=== PATIENT | female | born 1985 | race African-American/Black ===

== ENCOUNTER 2017-04-12 22:09 | Emergency (ER) | payer SELFPAY ==
[2017-04-12] MEDS ORDERED: NORMAL SALINE 1000 ML 1,000 ML IV ONE ×2 (22:24→23:17)
[2017-04-12] MEDS ORDERED: ONDANSETRON HCL INJ/PF 4 MG/2 ML SDV IV ONE (22:24)
[2017-04-12 23:02] LABS: ABSOLUTE MONOCYTES (AUTO) 1.2 10^3/uL (0.1-1.4); ABSOLUTE NEUT (AUTO) 17.4 10^3/uL (1.7-8.2); BASOPHILS % (AUTO) 0.1 % (0-2); EOSINOPHILS % (AUTO) 0.2 % (0-6); HEMATOCRIT 33.7 % (36.0-47.0); HEMOGLOBIN 10.3 g/dL (12.0-15.5); LYMPHOCYTES % (AUTO) 5.3 % (13-45); MEAN CORPUSCULAR HEMOGLOBIN 21.3 pg (27.0-33.4); MEAN CORPUSCULAR HGB CONC 30.5 g/dL (32.0-36.0); MEAN CORPUSCULAR VOLUME 70 fl (80-97); MONOCYTES % (AUTO) 5.9 % (3-13); PLATELET COUNT 543 10^3/uL (150-450); RED BLOOD COUNT 4.83 10^6/uL (3.72-5.28); RED CELL DISTRIBUTION WIDTH 17.6 % (11.5-14.0); SEGMENTED NEUTROPHILS % (AUTO) 88.5 % (42-78); TOTAL CELLS COUNTED % (AUTO) 100 %; WHITE BLOOD COUNT 19.6 10^3/uL (4.0-10.5)
--- NOTE | 2017-04-12 23:21 | ER Document Report ---
ED General - General Chief Complaint: Nausea/Vomiting Stated Complaint: VOMITING Time Seen by Provider: 04/12/17 22:23 Notes: Patient is a 31 year old female with a past medical history of insulin- dependent type 1 diabetes who presents with nausea, vomiting and diarrhea that is been ongoing for 2-3 hours prior to arrival. She states that after multiple episodes of vomiting she did have an episode of syncope. She states that this was a very brief episode and she is uncertain whether or not she truly lost consciousness. She arrives stating that she has been unable to tolerate any fluid intake since that time and feels extremely dehydrated. She notes a mild, generalized abdominal soreness which she reports started after multiple episodes of violent heaving. Nothing improves or worsens her symptoms. She has not seen her general doctor regarding today's symptoms. She states this does not feel like when she has had diabetic ketoacidosis in the past. 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 She has not had any fever, cough, sputum production, headache, neck pain, focal abdominal pain, vaginal bleeding or vaginal discharge. No dysuria. TRAVEL OUTSIDE OF THE [place] IN LAST 30 DAYS: No - Related Data Allergies/Adverse Reactions: No Known Allergies Allergy (Verified 11/27/12 11:59) Past Medical History - General Information source: Patient - Social History Smoking Status: Never Smoker Frequency of alcohol use: None Drug Abuse: None Lives with: Family Family History: Reviewed & Not Pertinent Endocrine Medical History: Reports: Hx Diabetes Mellitus Type 1 Past Surgical History: Reports: Hx Section - x 3 - Immunizations Hx Diphtheria, Pertussis, Tetanus Vaccination: Yes Review of Systems - Review of Systems Notes: Constitutional: Negative for fever. HENT: Negative for sore throat. Eyes: Negative for visual changes. Cardiovascular: Negative for chest pain. Respiratory: Negative for shortness of breath. Gastrointestinal: Positive for abdominal soreness and vomiting Genitourinary: Negative for dysuria. Musculoskeletal: Negative for back pain. Skin: Negative for rash. Neurological: Negative for headaches, weakness or numbness. 10 point ROS negative except as marked above and in HPI. Physical Exam - Vital signs Vitals: Temp Pulse Resp BP Pulse Ox 98.2 F 110 H 18 87/58 L 100 04/12/17 22:14 04/12/17 22:14 04/12/17 22:14 04/12/17 22:14 04/12/17 22:14 Interpretation: Hypotensive, Tachycardic Notes: PHYSICAL EXAMINATION: GENERAL: Appears mildly unwell but in no acute distress HEAD: Atraumatic, normocephalic. EYES: Pupils equal round and reactive to light, extraocular movements intact, sclera anicteric, conjunctiva are normal. ENT: nares patent, oropharynx clear without exudates. Dry mucous membranes. NECK: Normal range of motion, supple without lymphadenopathy LUNGS: Breath sounds clear to auscultation bilaterally and equal. No wheezes rales or rhonchi. HEART: Regular tachycardia without murmurs ABDOMEN: Soft, nontender, normoactive bowel sounds. No guarding, no rebound. No masses appreciated. EXTREMITIES: Normal range of motion, no pitting or edema. No cyanosis. NEUROLOGICAL: No focal neurological deficits. Moves all extremities spontaneously and on command. PSYCH: Normal mood, normal affect. SKIN: Warm, Dry, normal turgor, no rashes or lesions noted. Course - Re-evaluation Re-evalutation: 04/12/17 23:19 Patient presents with acute onset of vomiting and diarrhea followed by syncopal episode. At time of assessment patient's overall nontoxic. Vitals show mild tachycardia heart rate 108 and a mildly soft blood pressure 92 and 76. Patient states that her symptoms do not feel like when she has had diabetic ketoacidosis in the past. She does note some general abdominal soreness but states that this started after multiple bouts of vomiting and she feels that this is related to muscle soreness from some any episodes of vomiting. On abdominal exam she has no focal abdominal tenderness, rebound or guarding. Clinical history is not consistent with acute pancreatitis, biliary pathology, acute appendicitis, bowel obstruction or mesenteric ischemia. She has ready tolerate oral intake here in the emergency department. Her labs are notable for leukocytosis which is nonspecific and may very well be related to her persistent vomiting. Awaiting the remainder of her labs to further exclude any evidence of diabetic ketoacidosis. Will reassess after IV fluids. 04/12/17 23:47 Labs are not consistent with acute diabetic ketoacidosis. Patient is continued to receive IV fluids. She has been up and ambulate and around without difficulty. Will continue to monitor 04/13/17 00:53 Patient's heart rate has normalized as has her blood pressure. Current heart rate is 97, blood pressure 120-176. Urinalysis does show findings consistent with likely pyelonephritis which may be the trigger for patient's vomiting. She has been given a dose of cephalexin. She will be started on a 7 day course of additional cephalexin. She is in no distress. She has tolerated oral intake for over 1 hour at this time without further episodes of vomiting. Repeat abdominal assessment remains without any focal abdominal tenderness, rebound or guarding. She states she feels much improved. I have instructed her to immediately reconnect her insulin pump at time of discharge. At this point given her complete resolution of symptoms, improvement of her vital signs , and overall unremarkable labs with the exception of chronic anemia and a leukocytosis likely secondary to pyelonephritis, I believe discharge with outpatient follow-up is appropriate. At this time will discharge with return precautions and follow-up recommendations. Verbal discharge instructions given a the bedside and opportunity for questions given. Medication warnings reviewed. Patient is in agreement with this plan and has verbalized understanding of return precautions and the need for primary care follow-up in the next 24-72 hours. - Vital Signs Vital signs: Temp Pulse Resp BP Pulse Ox 98.8 F 110 H 18 87/58 L 100 04/13/17 01:03 04/12/17 22:14 04/12/17 22:14 04/12/17 22:14 04/12/17 22:14 - Laboratory Result Diagrams: 04/12/17 22:47 04/12/17 22:47 Laboratory results interpreted by me: 04/12/17 04/12/17 04/12/17 22:47 22:47 23:30 WBC 19.6 H Hgb 10.3 L Hct 33.7 L MCV 70 L MCH 21.3 L MCHC 30.5 L RDW 17.6 H Plt Count 543 H Seg Neutrophils % 88.5 H Lymphocytes % 5.3 L Absolute Neutrophils 17.4 H Glucose 217 H Calcium 10.5 H Total Protein 8.5 H Urine Protein 100 H Urine Glucose (UA) >=500 H Ur Leukocyte Esterase LARGE H Discharge - Discharge Clinical Impression: Vomiting and diarrhea, Dehydration, Pyelonephritis Condition: Good Disposition: HOME, SELF-CARE Additional Instructions: Your labs do show findings consistent with a urinary tract infection. You are being started on antibiotics to treat this. You were also sent home with Nick to treat her nausea as needed. Please continue to monitor blood sugars closely at home and return if they are consistently above 200. Please also return if you develop persistent vomiting, pass out, worsening abdominal pain, or have any other symptoms that are worrisome to you. Prescriptions: Cephalexin Monohydrate [Keflex 500 mg Capsule] 500 mg PO Q6H 7 Days capsule Forms: Return to Work
[2017-04-12 23:26] LABS: ALANINE AMINOTRANSFERASE 20 U/L (9-52); ALBUMIN 4.9 g/dL (3.5-5.0); ALKALINE PHOSPHATASE 95 U/L (38-126); ANION GAP 19 (5-19); ASPARTATE AMINO TRANSFERASE 21 U/L (14-36); BILIRUBIN,DIRECT 0.1 mg/dL (0.0-0.4); BILIRUBIN,TOTAL 0.3 mg/dL (0.2-1.3); BLOOD UREA NITROGEN 14 mg/dL (7-20); CALCIUM 10.5 mg/dL (8.4-10.2); CARBON DIOXIDE 22 mmol/L (22-30); CHLORIDE 102 mmol/L (98-107); GLUCOSE 217 mg/dL (75-110); LIPASE 38.3 U/L (23-300); POTASSIUM 3.6 mmol/L (3.6-5.0); SODIUM 142.5 mmol/L (137-145); TOTAL PROTEIN 8.5 g/dL (6.3-8.2)
[2017-04-12 23:42] LABS: VENOUS BLOOD BASE EXCESS -1.3 mmol/L; VENOUS BLOOD HCO3 24.5 mmol/L (20-32); VENOUS BLOOD PH 7.35 (7.30-7.42)
[2017-04-13 00:12] LABS: APPEARANCE,URINE CLOUDY; BILIRUBIN,URINE NEGATIVE (NEGATIVE); COLOR,URINE YELLOW; GLUCOSE, URINE >=500 mg/dL (NEGATIVE); KETONES,URINE NEGATIVE (NEGATIVE); LEUKOCYTE ESTERASE,URINE LARGE (NEGATIVE); NITRITE,URINE NEGATIVE (NEGATIVE); PROTEIN,URINE 100 mg/dL (NEGATIVE); URINE SPECIFIC GRAVITY 1.024; UROBILINOGEN,URINE NEGATIVE mg/dL (<2.0)
[2017-04-13] MEDS ORDERED: ONDANSETRON ODT 4 MG TAB (6 TAB/ER DISP) PO PRN (00:53)
[2017-04-13] MEDS ORDERED: CEPHALEXIN 500 MG CAPSULE PO ONE (02:07)
[2017-04-13 02:23] VITALS: BP 114/74
== END 2017-04-13 02:23 | disposition home or self-care (01) ==
LOC: ER 22:09
DX: N12 Tubulo-interstitial nephritis, not specified as acute or chronic (principal); E86.0 Dehydration; R11.2 Nausea with vomiting, unspecified; R19.7 Diarrhea, unspecified; E10.9 Type 1 diabetes mellitus without complications; Z79.4 Long term (current) use of insulin
CPT/HCPCS: 99284; 96361; 96374; 36415; 87086; 83690; 84703; 85025; 87088; 80053; 81001; 82803; J2405; J7030

== ENCOUNTER 2017-09-29 16:34 | Emergency (ER) | payer OTHER ==
[2017-09-29 16:39] VITALS: BP 125/77
--- NOTE | 2017-09-29 17:48 | ER Document Report ---
HPI - HPI Pain Level: 4 Notes: Patient is a 32-year-old female no significant past medical history presents to the ED complaining of left medial knee pain 1 week, but worsening over the last few days. 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 Patient states that she has a burning sensation to the medial part of her knee is worse when she touches it. She has not noticed any obvious swelling or redness. She is still able to walk, but does limp on occasion. Pain does not radiate. Denies any drug allergies. The knee does not give out on her and does not lock up. No other concerns or complaints at this time. No trauma or known injury. Denies any headache, fever , URI, sore throat, chest pain, palpitations, syncope, cough, shortness of breath, wheeze, dyspnea, abdominal pain, nausea/vomiting/diarrhea, urinary retention, dysuria, hematuria, loss of control of bowel or bladder, numbness/ tingling, muscle paralysis/weakness, or rash. Pt requesting work note. - ROS Systems Reviewed and Negative: Yes All other systems reviewed and negative - CONSTITUTIONAL Constitutional: DENIES: Fever, Chills - EENT EENT: DENIES: Sore Throat, Ear Pain, Eye problems - NEURO Neurology: DENIES: Headache, Weakness, Vision blurred, Dizzinesss / Vertigo - CARDIOVASCULAR Cardiovascular: DENIES: Chest pain - RESPIRATORY Respiratory: DENIES: Trouble Breathing, Coughing - GASTROINTESTINAL Gastrointestinal: DENIES: Abdominal Pain, Black / Bloody Stools - URINARY Urinary: DENIES: Dysuria, Urgency, Frequency - REPRODUCTIVE Reproductive: DENIES: : - MUSCULOSKELETAL Musculoskeletal: REPORTS: Extremity pain - left knee Past Medical History - Social History Smoking Status: Unknown if Ever Smoked Chew tobacco use (# tins/day): No Frequency of alcohol use: None Drug Abuse: None Family History: Reviewed & Not Pertinent Patient has suicidal ideation: No Patient has homicidal ideation: No Endocrine Medical History: Reports: Hx Diabetes Mellitus Type 1 Renal/ Medical History: Denies: Hx Peritoneal Dialysis Past Surgical History: Reports: Hx Section - x 3 - Immunizations Hx Diphtheria, Pertussis, Tetanus Vaccination: Yes Vertical Provider Document - CONSTITUTIONAL Agree With Documented VS: Yes Notes: PHYSICAL EXAMINATION: GENERAL: Well-appearing, well-nourished and in no acute distress. LUNGS: Breath sounds clear to auscultation bilaterally and equal. No wheezes rales or rhonchi. HEART: Regular rate and rhythm without murmurs, rubs, gallops. Musculoskeletal: Lt knee: No obvious swelling, ecchymosis, effusion, or deformity. FROM to passive/active and flexion >90 w/o difficulty or tenderness. Strength 5+/5. N/V intact distal. + mild tenderness to the medial joint line. Ligamentous grossly stable, limited exam with larger leg size. Bill grossly negative. Patellar grind negative. No calf tenderness. Extremities: No cyanosis, clubbing, or edema b/l. Peripheral pulses 2+. Capillary refill less than 3 seconds. [place] neg b/l. NEUROLOGICAL: Normal speech, normal gait. Normal sensory, motor exams PSYCH: Normal mood, normal affect. SKIN: Warm, Dry, normal turgor, no rashes or lesions noted. - INFECTION CONTROL TRAVEL OUTSIDE OF THE [place] IN LAST 30 DAYS: No Course - Re-evaluation Re-evalutation: 09/29/17 17:45 Patient is an afebrile, well-hydrated, 32-year-old female who presents to the ED with left knee pain, suspect inflammatory. Vitals are acceptable without any significant tachycardia, tachypnea, or hypoxia. PE is otherwise unremarkable for any neurovascular compromise, obvious tendon/ligament rupture, obvious fracture/dislocation, septic joint. [place] knee rules negative. Pt declined knee immobilizer & crutches. Patient is nontoxic-appearing. Patient is able to ambulate and weight-bear although she is limping. No other labs or imaging warranted at this time based on H&P. Rx for naproxen. Conservative measures otherwise for symptoms. Recheck with your PCM in 3-5 days. Consider consult orthopedics. Return to the ED with any worsening/concerning symptoms otherwise as reviewed in discharge. Patient is in agreement. Work note provided. - Vital Signs Vital signs: Temp Pulse Resp BP Pulse Ox 99.2 F 104 H 24 H 125/77 100 09/29/17 16:38 09/29/17 16:38 09/29/17 16:38 09/29/17 16:38 09/29/17 16:38 Discharge - Discharge Clinical Impression: Left knee pain Qualifiers: Chronicity: acute Qualified Code(s): M25.562 - Pain in left knee Condition: Stable Disposition: HOME, SELF-CARE Instructions: Ice & Elevation ([facility]) Additional Instructions: Rest, Ice, Compression, Elevation Tylenol/ibuprofen as needed Light stretches daily Strength exercises as able Moist heat and massage may help F/u with your PCP in 3-5 days for a recheck Consider consult(s) with Orthopedics/physical therapy for ongoing/worsening symptoms Return to the ED with any worsening symptoms and/or development of fever, headache, chest pain, palpitations, syncope, shortness of breath, trouble breathing, abdominal pain, n/v/d, muscle weakness/paralysis, numbness/tingling, swelling, redness, or other worsening symptoms that are concerning to you. Prescriptions: Naproxen 500 mg PO BID PRN #30 tablet PRN Reason: Forms: Return to Work Referrals: [facility] [Provider Group] - Follow up as needed
== END 2017-09-29 18:26 | disposition home or self-care (01) ==
LOC: ER 16:34
DX: M25.562 Pain in left knee (principal); E10.9 Type 1 diabetes mellitus without complications
CPT/HCPCS: 99283

== ENCOUNTER 2017-11-02 17:02 | Emergency (ER) | payer OTHER ==
--- NOTE | 2017-11-02 18:09 | ER Document Report ---
ED Medical Screen (RME) - General Chief Complaint: Urinary Problem Stated Complaint: PELVIC PAIN Time Seen by Provider: 11/02/17 18:07 Mode of Arrival: Ambulatory Information source: Patient Notes: 32-year-old female diabetes presents with complaint of pelvic pain, dysuria for 1 week. She denies vaginal discharge. Last menstrual period was October 08, 2017. She is currently sexually active. She has not had a pelvic exam in over 1 year. I have greeted and performed a rapid initial assessment of this patient. A comprehensive ED assessment and evaluation of the patient, analysis of test results and completion of medical decision making process we will be contacted by additional ED providers. PHYSICAL EXAMINATION: GENERAL: Well-appearing, well-nourished and in no acute distress. HEAD: Atraumatic, normocephalic. EYES: Pupils equal round extraocular movements intact, conjunctiva are normal. ENT: Nares patent NECK: Normal range of motion LUNGS: No respiratory distress Musculoskeletal: Normal range of motion NEUROLOGICAL: Normal speech, normal gait. PSYCH: Normal mood, normal affect. SKIN: Warm, Dry, normal turgor, no rashes or lesions noted. TRAVEL OUTSIDE OF THE [place] IN LAST 30 DAYS: No - HPI Onset: Last week Onset/Duration: Gradual, Intermittent, Worse Quality of pain: Fullness, Pressure Severity: Mild Associated Symptoms: None Exacerbated by: Denies Relieved by: Denies Similar symptoms previously: No Recently seen / treated by doctor: No - Related Data Smoking: Non-smoker Frequency of alcohol use: None Drug Abuse: None Allergies/Adverse Reactions: No Known Allergies Allergy (Verified 09/29/17 16:36) Past Medical History - Social History Family history: Reviewed & Not Pertinent Endocrine Medical History: Reports: Hx Diabetes Mellitus Type 1 Renal/ Medical History: Denies: Hx Peritoneal Dialysis Past Surgical History: Reports: Hx Section - x 3 - Immunizations Hx Diphtheria, Pertussis, Tetanus Vaccination: Yes Physical Exam - Vital signs Vitals: Temp Pulse Resp BP Pulse Ox 98.2 F 100 12 143/84 H 100 11/02/17 17:08 11/02/17 17:08 11/02/17 17:08 11/02/17 17:08 11/02/17 17:08 Course - Vital Signs Vital signs: Temp Pulse Resp BP Pulse Ox 98.2 F 100 12 143/84 H 100 11/02/17 17:08 11/02/17 17:08 11/02/17 17:08 11/02/17 17:08 11/02/17 17:08 Doctor's Discharge - Discharge Referrals: ISHA LUNDBERG MD [Primary Care Provider] - Follow up as needed
[2017-11-02 19:00] LABS: APPEARANCE,URINE CLOUDY; BILIRUBIN,URINE NEGATIVE (NEGATIVE); GLUCOSE, URINE >=500 mg/dL (NEGATIVE); KETONES,URINE NEGATIVE (NEGATIVE); LEUKOCYTE ESTERASE,URINE LARGE (NEGATIVE); NITRITE,URINE NEGATIVE (NEGATIVE); PROTEIN,URINE NEGATIVE (NEGATIVE); URINE SPECIFIC GRAVITY 1.033; UROBILINOGEN,URINE NEGATIVE mg/dL (<2.0)
[2017-11-02 19:01] LABS: COLOR,URINE LIGHT YELLOW
--- NOTE | 2017-11-02 19:35 | ER Document Report ---
HPI - HPI Pain Level: 2 Notes: Patient is a 32-year-old female with a significant past medical history who presents to the ED complaining of urinary burning, urgency, and frequency over the last week. Patient states that she also has suprapubic pressure, but no sharp pains. She denies any drug allergies. No other concerns or complaints. Denies any headache, fever, URI, sore throat, chest pain, palpitations, syncope , cough, shortness of breath, wheeze, dyspnea, abdominal pain, nausea/vomiting/ diarrhea, urinary retention, back pain, loss of control of bowel or bladder, numbness/tingling, saddle anesthesia, muscle paralysis/weakness, or rash. No vaginal discharge, odor, or bleeding. - ROS Systems Reviewed and Negative: Yes All other systems reviewed and negative - REPRODUCTIVE Reproductive: DENIES: : Past Medical History - General Information source: Patient - Social History Smoking Status: Never Smoker Frequency of alcohol use: None Drug Abuse: None Family History: Reviewed & Not Pertinent Patient has suicidal ideation: No Patient has homicidal ideation: No Endocrine Medical History: Reports: Hx Diabetes Mellitus Type 1 Renal/ Medical History: Denies: Hx Peritoneal Dialysis Past Surgical History: Reports: Hx Section - x 3 - Immunizations Hx Diphtheria, Pertussis, Tetanus Vaccination: Yes Vertical Provider Document - CONSTITUTIONAL Agree With Documented VS: Yes Notes: PHYSICAL EXAMINATION: GENERAL: Well-appearing, well-nourished and in no acute distress. LUNGS: Breath sounds clear to auscultation bilaterally and equal. No wheezes rales or rhonchi. HEART: Regular rate and rhythm without murmurs, rubs, gallops. ABDOMEN: Soft, nontender, nondistended abdomen. No guarding, no rebound. No masses appreciated. Normal bowel sounds present. No CVA tenderness bilaterally. : deferred Musculoskeletal: FROM to passive/active. Strength 5+/5. Extremities: No cyanosis, clubbing, or edema b/l. Peripheral pulses 2+. Capillary refill less than 3 seconds. NEUROLOGICAL: Normal speech, normal gait. PSYCH: Normal mood, normal affect. SKIN: Warm, Dry, normal turgor, no rashes or lesions noted. - INFECTION CONTROL TRAVEL OUTSIDE OF THE [place] IN LAST 30 DAYS: No Course - Re-evaluation Re-evalutation: 11/02/17 19:33 Patient is an afebrile, well-hydrated, 32-year-old female who presents to the ED with an acute UTI. Vitals are acceptable without any significant tachycardia , tachypnea, or hypoxia. PE is otherwise unremarkable. Patient's abdomen is soft and nontender throughout. See urinalysis results. Urine culture is pending. HCG negative. No further labs or imaging warranted at this time based on H&P. Patient is tolerating p.o. without difficulties and is nontoxic- appearing. Low suspicion/risk for acute appendicitis, bowel obstruction, acute cholecystitis, acute cholangitis, perforated diverticulitis, incarcerated hernia , pancreatitis, perforated ulcer, peritonitis, sepsis, pelvic inflammatory disease, ectopic , tubo-ovarian abscess, ovarian torsion, or other systemic emergent condition at this time. Patient is aware that her condition can change from initial presentation and she needs to monitor symptoms closely and seek medical attention if any acute changes. Conservative measures otherwise for symptoms. Recheck with your PCM in 3-5 days. Return to the ED with any worsening/concerning symptoms otherwise as reviewed in discharge. Patient is in agreement. - Vital Signs Vital signs: Temp Pulse Resp BP Pulse Ox 98.2 F 100 12 143/84 H 100 11/02/17 17:08 11/02/17 17:08 11/02/17 17:08 11/02/17 17:08 11/02/17 17:08 - Laboratory Laboratory results interpreted by me: 11/02/17 18:15 Urine Glucose (UA) >=500 H Ur Leukocyte Esterase LARGE H Urine Ascorbic Acid 20 H Discharge - Discharge Clinical Impression: Acute UTI (urinary tract infection) Condition: Stable Disposition: HOME, SELF-CARE Instructions: Cephalexin ([facility]), Urinary Tract Infection ([facility]) Additional Instructions: Push fluids (i.e. water, cranberry juice) Proper hygenic technique Keep the skin clean Tylenol/ibuprofen as needed May use over the counter AZO for burning with urination x2-3 days Take medications as directed F/u with your PCM in 3-5 days for a recheck Consider consult with a Urologist for ongoing/worsening symptoms. Return to the ED with any worsening symptoms and/or development of fever, headache, chest pain, palpitations, syncope, shortness of breath, trouble breathing, abdominal pain, n/v/d, blood in stool/urine, loss of control of bowel /bladder, urinary retention, or other worsening symptoms that are concerning to you. Prescriptions: Cephalexin Monohydrate [Keflex 500 mg Capsule] 500 mg PO TID #21 capsule Referrals: ISHA LUNDBERG MD [ACTIVE STAFF] - Follow up as needed
[2017-11-02 19:42] VITALS: BP 122/78
== END 2017-11-02 19:43 | disposition home or self-care (01) ==
LOC: ER 17:02
DX: N39.0 Urinary tract infection, site not specified (principal); E10.9 Type 1 diabetes mellitus without complications
CPT/HCPCS: 81001; 81025; 87086; 87088; 99284

== ENCOUNTER 2018-02-04 21:07 | Emergency (ER) | payer OTHER ==
--- NOTE | 2018-02-04 23:59 | RADIOLOGY REPORT (SQ) ---
EXAM DESCRIPTION: XR CHEST 1 VIEW COMPLETED DATE/TME: 02/04/2018 23:24 CLINICAL HISTORY: 32 years, Female, chest pain COMPARISON: None. NUMBER OF VIEWS: 1 TECHNIQUE: Portable chest LIMITATIONS: None. FINDINGS: Heart size is normal. Lungs are clear. No pneumothorax IMPRESSION: Negative chest copyright 2011 [employer]- All Rights Reserved
[2018-02-05] MEDS ORDERED: KETOROLAC TROMETHAMINE 60 MG/2 ML SDV IM ONE (00:14)
--- NOTE | 2018-02-05 00:20 | ER Document Report ---
ED General - General Chief Complaint: Chest Pain Stated Complaint: CHEST PAIN Time Seen by Provider: 02/04/18 23:24 TRAVEL OUTSIDE OF THE [place] IN LAST 30 DAYS: No - HPI Onset: This morning Onset/Duration: Gradual, Waxing and waning Quality of pain: Sharp Severity: Moderate Associated symptoms: None Exacerbated by: Movement Relieved by: Denies Similar symptoms previously: No Notes: Patient is a 32-year-old female that presents to the emergency department for chief complaint of chest pain. Patient reports a sharp chest pain that started this morning. It is worse when she moves and relieved some when she is holding still. She states the pain is located just to the right of her sternum. She denies injury or trauma. She denies any heavy lifting. She has not had any recent surgery, travel, or im mobilization. She denies any leg edema or cramping. She denies being on any estrogen medications. She is a diabetic and states her blood glucose runs between 102 100. She denies family history of cardiac disease. She has not taken any medication for her symptoms. Past Medical History: Diabetes Past Surgical History: x3 Social History: Denies drugs alcohol and tobacco Family History: Reviewed and noncontributory for presenting illness Allergies: Reviewed, see documented allergy list. REVIEW OF SYSTEMS: CONSTITUTIONAL : No fever No chills No diaphoresis No recent illness EENT: No vision changes No congestion No sore throat CARDIOVASCULAR: chest pain No palpitations RESPIRATORY: No shortness of breath No cough No difficulty breathing GASTROINTESTINAL: No abdominal pain No nausea No vomiting No diarrhea GENITOURINARY: No dysuria No hematuria No difficulty urinating MUSCULOSKELETAL: No back pain No leg pain No arm pain SKIN: No rashes No lesions LYMPHATIC: No swollen, enlarged glands. NEUROLOGICAL: No lightheadedness No headache No weakness No paresthesias PSYCHIATRIC: No anxiety No depression PHYSICAL EXAMINATION: Vital signs reviewed, nursing noted reviewed. GENERAL: Well-appearing, well-nourished and in no acute distress. HEAD: Atraumatic, normocephalic. EYES: Eyes appear normal, extraocular movements intact, sclera anicteric, conjunctiva are normal. ENT: nares patent, oropharynx clear without exudates. Moist mucous membranes. NECK: Normal range of motion, supple without lymphadenopathy LUNGS: Pinpoint tenderness on right parasternal border between ribs 3/4 and 4/5. No crepitus or deformity. Breath sounds clear to auscultation bilaterally and equal. No wheezes rales or rhonchi. HEART: Regular rate and rhythm without murmurs ABDOMEN: Soft, nontender, normoactive bowel sounds. No rebound, guarding, or rigidity. No masses appreciated. EXTREMITIES: Nontender, good range of motion, no pitting or edema. NEUROLOGICAL: No focal neurological deficits. Moves all extremities spontaneously Motor and sensory grossly intact on exam. PSYCH: Normal mood, normal affect. SKIN: Warm, Dry, normal turgor, no rashes or lesions noted on exposed skin - Related Data Allergies/Adverse Reactions: No Known Allergies Allergy (Verified 09/29/17 16:36) Past Medical History - Social History Smoking Status: Former Smoker Chew tobacco use (# tins/day): No Drug Abuse: None Family History: Reviewed & Not Pertinent Patient has suicidal ideation: No Patient has homicidal ideation: No Endocrine Medical History: Reports: Hx Diabetes Mellitus Type 1 Renal/ Medical History: Denies: Hx Peritoneal Dialysis Past Surgical History: Reports: Hx Section - x 3 - Immunizations Hx Diphtheria, Pertussis, Tetanus Vaccination: Yes Physical Exam - Vital signs Vitals: Temp Pulse Resp BP 99.2 F 97 16 124/79 02/04/18 22:24 02/04/18 22:24 02/04/18 22:24 02/04/18 22:24 Course - Re-evaluation Re-evalutation: 02/05/18 00:20 Vitals reviewed. Nursing notes reviewed. Patient's x-ray shows no acute rib fracture or other acute process. Her EKG is normal. She has pinpoint tenderness on her anterior chest wall and symptoms are likely musculoskeletal. She will be given Toradol for symptomatic management in the emergency room. She was encouraged to use anti-inflammatories at home. She will follow closely with her primary care doctor for reevaluation in the next few days. She will return to the emergency room for any new or worsening symptoms. She is PERC criteria negative and I do not suspect pulmonary embolism. She only has diabetes as a risk factor for ACS and her symptoms are not consistent, ACS is not suspected. Chest X-Ray 02/04/18 23:24 IMPRESSION: Negative chest copyright 2011 [employer]- All Rights Reserved - Vital Signs Vital signs: Temp Pulse Resp BP Pulse Ox 99.2 F 97 16 124/79 02/04/18 22:24 02/04/18 22:24 02/04/18 22:24 02/04/18 22:24 Discharge - Discharge Clinical Impression: Chest wall pain Condition: Stable Disposition: HOME, SELF-CARE Instructions: Chest Wall Pain ([facility]), Anti-Inflammatory Medication ([facility]) Additional Instructions: Please return to the emergency department if you have any worsening, or concern of your symptoms. Please return to the emergency department if you develop chest pain, difficulty breathing, severe abdominal pain, or ongoing vomiting. Please follow-up with your primary care physician in 2-3 days or the [facility] If prescribed, take all medications as directed. If you have any questions or concerns do not hesitate to return the emergency department for evaluation. Referrals: [facility] [Provider Group] - Follow up as needed
[2018-02-05 00:26] VITALS: BP 128/79
--- NOTE | 2018-02-05 08:49 | EKG REPORT ---
SEVERITY:- ABNORMAL ECG - SINUS RHYTHM PROBABLE LEFT ATRIAL ABNORMALITY ABNORMAL Q SUGGESTS ANTERIOR INFARCT : Confirmed by: Adriano Trejo 05-Feb-2018 08:48:30
== END 2018-02-05 00:25 | disposition home or self-care (01) ==
LOC: ER 21:07
DX: R07.89 Other chest pain (principal); Z87.891 Personal history of nicotine dependence; E10.9 Type 1 diabetes mellitus without complications
CPT/HCPCS: 93005; 99285; 96372; 71045; 93010; J1885

== ENCOUNTER 2018-05-24 07:20 | Emergency (ER) | payer OTHER ==
[2018-05-24 07:25] VITALS: BP 119/77
--- NOTE | 2018-05-24 08:32 | ER Document Report ---
Addendum entered and electronically signed by JAYSHREE GUSMAN FNP-C 05/24/18 12:46: Course - Re-evaluation Re-evalutation: 05/24/18 11:20 . Presentation of asymptomatic hyperglycemia. There is no evidence of HHS or diabetic ketoacidosis on laboratories or based on clinical history. Patient's vitals are within normal limits. They deny any acute focal complaints. Treatment with insulin and IV fluids given here in the emergency department with appropriate response of the blood sugar. Patient does have primary care follow- up. Patient was instructed to continue taking their metformin and advised they will likely need to increase dietary modification and may also need medication changes. BS 276, will give 10 units of insulin and 1 liter of IV fluids given. recheck BS 1 hour later, BS 266. was 296 when she arrived. Pt does have an insulin pump, states she does regulate her BS with her insulin pump. checks her BS several times a day. Last Alc was less than 10. Denies to follow-up with primary care provider tomorrow. Follow a low-carb diet. Monitor blood sugars at day, cover with insulin. Patient states that she would like to leave and will be able to monitor her blood sugars at homeIndications to return to emergency department as well as the importance of close outpatient follow-up were discussed at length. Patient verbalized understanding of the need for close follow-up and indications to return to the ED. - Vital Signs Vital signs: Temp Pulse Resp BP Pulse Ox 98.2 F 95 14 119/77 100 05/24/18 07:23 05/24/18 07:23 05/24/18 07:23 05/24/18 07:23 05/24/18 07:23 - Laboratory Result Diagrams: 05/24/18 09:21 05/24/18 09:21 Laboratory results interpreted by me: 05/24/18 05/24/18 05/24/18 09:21 09:21 09:21 Hgb 8.7 L Hct 28.4 L MCV 65 L MCH 19.8 L MCHC 30.6 L RDW 17.0 H Plt Count 676 H Sodium 135.7 L Creatinine 0.43 L Glucose 296 H POC Glucose Urine Protein 30 H Urine Glucose (UA) >=500 H Ur Leukocyte Esterase LARGE H Urine Ascorbic Acid 40 H 05/24/18 11:10 Hgb Hct MCV MCH MCHC RDW Plt Count Sodium Creatinine Glucose POC Glucose 274 H Urine Protein Urine Glucose (UA) Ur Leukocyte Esterase Urine Ascorbic Acid Original Note: ED General - General Chief Complaint: Pelvic Pain Stated Complaint: PELVIC PAIN Time Seen by Provider: 05/24/18 08:25 Primary Care Provider: RENY LOBO MD [ACTIVE STAFF] - Follow up as needed ILIR JETER MD [ACTIVE STAFF] - Follow up as needed Mode of Arrival: Ambulatory Information source: Patient, Parent TRAVEL OUTSIDE OF THE [place] IN LAST 30 DAYS: No - HPI Notes: 32-year-old female with a history of type 1 diabetes who is on insulin pump presents to the ED for complaints of having dysuria, urgency frequency suprapubic pain for the last 2 weeks has become progressively worse, she is concerned that she may have a kidney infection. Tried AZO 2 weeks ago, states she was taking that for a week and then when she stopped taking it noticed she was having lower abdominal cramping. Patient states she did have her menstrual cycle last week was unsure if this is related to her menstrual cycle or because of for UTI. Patient states she has had UTIs in the past but is never had a problem nephritis. Thought her AZO had a antibacterial property to it so this is why she consistently took AZO. Denies any vaginal bleeding, pelvic pain, vaginal pain or vaginal discharge. Denies fevers, chills, chest pain,palpitations, shortness of breath, dyspnea, nausea, vomiting, diarrhea, abdominal pain besides suprapubic area, hematuria,speech changes, LH, dizziness, syncope, headaches, weakness, bowel or bladder dysfunction, saddle anesthesia, numbness or tingling in bilateral upper or lower extremities equally, muscle paralysis, weakness in bilateral upper or lower extremities equally or rash. States that she did check her sugar this morning it was around 200 - Related Data Allergies/Adverse Reactions: No Known Allergies Allergy (Verified 05/24/18 07:21) Past Medical History - General Information source: Patient - Social History Smoking Status: Never Smoker Frequency of alcohol use: None Drug Abuse: None Family History: Reviewed & Not Pertinent Patient has suicidal ideation: No Patient has homicidal ideation: No Endocrine Medical History: Reports: Hx Diabetes Mellitus Type 1 Renal/ Medical History: Denies: Hx Peritoneal Dialysis Past Surgical History: Reports: Hx Section - x 3 - Immunizations Hx Diphtheria, Pertussis, Tetanus Vaccination: Yes Review of Systems - Review of Systems Constitutional: No symptoms reported EENT: No symptoms reported Cardiovascular: No symptoms reported Respiratory: No symptoms reported Gastrointestinal: No symptoms reported Genitourinary: See HPI Female Genitourinary: No symptoms reported Musculoskeletal: No symptoms reported Skin: No symptoms reported Hematologic/Lymphatic: No symptoms reported Neurological/Psychological: No symptoms reported Physical Exam - Vital signs Vitals: Temp Pulse Resp BP Pulse Ox 98.2 F 95 14 119/77 100 05/24/18 07:23 05/24/18 07:23 05/24/18 07:23 05/24/18 07:23 05/24/18 07:23 - Notes Notes: PHYSICAL EXAMINATION: GENERAL: Well-appearing, well-nourished and in no acute distress. HEAD: Atraumatic, normocephalic. EYES: Pupils equal round and reactive to light, extraocular movements intact, conjunctiva are normal. ENT: Nares patent, oropharynx clear without exudates. Moist mucous membranes. NECK: Normal range of motion, supple without lymphadenopathy LUNGS: Breath sounds clear to auscultation bilaterally and equal. No wheezes r ales or rhonchi. HEART: Regular rate and rhythm without murmurs ABDOMEN: Soft, nontender in all areas aside from suprapubic tenderness nondistended abdomen. No guarding, no rebound. No masses appreciated. No CVA tenderness appreciated bilaterally Female : deferred and refused Musculoskeletal: Normal range of motion, no pitting or edema. No cyanosis. NEUROLOGICAL: Cranial nerves grossly intact. Normal speech, normal gait. Normal sensory, motor exams PSYCH: Normal mood, normal affect. SKIN: Warm, Dry, normal turgor, no rashes or lesions noted. Course - Re-evaluation Re-evalutation: 05/24/18 09:26 32-year-old female afebrile vitals stable no distress for evaluation of suprapubic pain urgency frequency for the last 2 weeks. Patient unable to give a urine sample at this time, IV fluids 1 L bolus given as well as Toradol 30 mg for suprapubic pain, patient is concerned that she may have a pyelonephritis. cbc cmp urinalysis hcg After performing a Medical Screening Examination, I estimate there is LOW risk for ACUTE APPENDICITIS, BOWEL OBSTRUCTION, ACUTE CHOLECYSTITIS, PERFORATED DIVERTICULITIS, INCARCERATED HERNIA, PANCREATITIS, PELVIC INFLAMMATORY DISEASE, PERFORATED ULCER, ECTOPIC , or TUBO-OVARIAN ABSCESS, thus I consider the discharge disposition reasonable. Also, there is no evidence or peritonitis, sepsis, or toxicity. I have reevaluated this patient multiple times and no significant life threatening changes are noted. The patient and I have discussed the diagnosis and risks, and we agree with discharging home with close follow-up with the understanding that symptoms and presentations can change. We also discussed returning to the Emergency Department immediately if new or worsening symptoms occur. We have discussed the symptoms which are most concerning (e.g., bloody stool, fever, changing or worsening pain, vomiting) that necessitate immediate return. - Vital Signs Vital signs: Temp Pulse Resp BP Pulse Ox 98.2 F 95 14 119/77 100 05/24/18 07:23 05/24/18 07:23 05/24/18 07:23 05/24/18 07:23 05/24/18 07:23 - Laboratory Result Diagrams: 05/24/18 09:21 05/24/18 09:21 Laboratory results interpreted by me: 05/24/18 05/24/18 05/24/18 09:21 09:21 09:21 Hgb 8.7 L Hct 28.4 L MCV 65 L MCH 19.8 L MCHC 30.6 L RDW 17.0 H Plt Count 676 H Sodium 135.7 L Creatinine 0.43 L Glucose 296 H Urine Protein 30 H Urine Glucose (UA) >=500 H Ur Leukocyte Esterase LARGE H Urine Ascorbic Acid 40 H Discharge - Discharge Clinical Impression: UTI (urinary tract infection), Iron deficiency anemia Condition: Stable Disposition: HOME, SELF-CARE Instructions: Antibiotic Therapy ([facility]), Intravenous (IV) Fluids ([facility]), [facility]-[employer] Doctors, Toradol Injection ([facility]), Urinary Tract Infection ([facility]), Anemia, Iron Deficiency ([facility]) Additional Instructions: Urinary Tract Infection Your evaluation indicates that you have a urinary tract infection. This is due to germs growing in the bladder. This is a common problem. This infection usually responds quickly to antibiotics. Your antibiotic should be taken exactly as prescribed. Drink plenty of fluids -- three to four quarts a day. Occasionally, a bladder anesthetic will be prescribed to help stop the feeling of urgency until the antibiotic has a chance to clear the infection. This may cause your urine to be dark orange. Certain urine infections require a culture. If the doctor obtained a culture, the results will be back in two days. You should call to see if a change in treatment is needed. A repeat urinalysis after you finish treatment is often recommended. The physician will let you know if further testing is required. Call the doctor if you develop fever, chills, flank pain, inability to urinate, or blood in the urine. Prescriptions: Nitrofurantoin Macrocrystal [Macrodantin] 100 mg PO BID #20 capsule Phenazopyridine HCl [Pyridium] 200 mg PO TIDP PRN #9 tablet PRN Reason: Forms: Return to Work Referrals: ILIR JETER MD [ACTIVE STAFF] - Follow up as needed RENY LOBO MD [ACTIVE STAFF] - Follow up in 3-5 days
[2018-05-24] MEDS ORDERED: KETOROLAC TROMETHAMINE INJ/PF 30 MG/1 ML SDV IV ONE (08:58)
[2018-05-24] MEDS ORDERED: NORMAL SALINE 1000 ML 1,000 ML IV PRN (08:58)
[2018-05-24 09:48] LABS: ABSOLUTE EOSINOPHILS # (AUTO) 0.1 10^3/uL (0.0-0.6); ABSOLUTE LYMPHOCYTES (AUTO) 2.4 10^3/uL (0.5-4.7); ABSOLUTE MONOCYTES (AUTO) 0.4 10^3/uL (0.1-1.4); ABSOLUTE NEUT (AUTO) 4.2 10^3/uL (1.7-8.2); BASOPHILS % (AUTO) 0.6 % (0-2); EOSINOPHILS % (AUTO) 0.9 % (0-6); HEMATOCRIT 28.4 % (36.0-47.0); HEMOGLOBIN 8.7 g/dL (12.0-15.5); LYMPHOCYTES % (AUTO) 33.7 % (13-45); MEAN CORPUSCULAR HEMOGLOBIN 19.8 pg (27.0-33.4); MEAN CORPUSCULAR HGB CONC 30.6 g/dL (32.0-36.0); MEAN CORPUSCULAR VOLUME 65 fl (80-97); PLATELET COUNT 676 10^3/uL (150-450); RED BLOOD COUNT 4.39 10^6/uL (3.72-5.28); SEGMENTED NEUTROPHILS % (AUTO) 59.8 % (42-78); TOTAL CELLS COUNTED % (AUTO) 100 %
[2018-05-24 09:58] LABS: APPEARANCE,URINE TURBID; BILIRUBIN,URINE NEGATIVE (NEGATIVE); COLOR,URINE YELLOW; GLUCOSE, URINE >=500 mg/dL (NEGATIVE); KETONES,URINE NEGATIVE (NEGATIVE); LEUKOCYTE ESTERASE,URINE LARGE (NEGATIVE); NITRITE,URINE NEGATIVE (NEGATIVE); PROTEIN,URINE 30 mg/dL (NEGATIVE); URINE SPECIFIC GRAVITY 1.021; UROBILINOGEN,URINE NEGATIVE mg/dL (<2.0)
[2018-05-24 10:19] LABS: ALANINE AMINOTRANSFERASE 10 U/L (9-52); ALBUMIN 3.7 g/dL (3.5-5.0); ALKALINE PHOSPHATASE 95 U/L (38-126); ANION GAP 7 (5-19); ASPARTATE AMINO TRANSFERASE 15 U/L (14-36); BILIRUBIN,DIRECT 0.2 mg/dL (0.0-0.4); BILIRUBIN,TOTAL 0.3 mg/dL (0.2-1.3); BLOOD UREA NITROGEN 9 mg/dL (7-20); CALCIUM 9.4 mg/dL (8.4-10.2); CARBON DIOXIDE 26 mmol/L (22-30); CHLORIDE 103 mmol/L (98-107); GLUCOSE 296 mg/dL (75-110); POTASSIUM 4.4 mmol/L (3.6-5.0); SODIUM 135.7 mmol/L (137-145); TOTAL PROTEIN 7.5 g/dL (6.3-8.2)
[2018-05-24 10:29] LABS: HYPOCHROMASIA 2+; POLYCHROMASIA 1+
[2018-05-24 10:30] LABS: ANISOCYTOSIS 2+; OVALOCYTES 1+; PLATELET COMMENT INCREASED; POIKILOCYTOSIS SLIGHT; TEAR DROP CELLS SLIGHT
[2018-05-24] MEDS ORDERED: INSULIN REG, HUMAN 100 UNIT/ML 3 ML VIAL (PYX) IV ONE (11:19)
[2018-05-24] MEDS ORDERED: NORMAL SALINE 1000 ML 1,000 ML IV ONE (11:21)
[2018-05-24] MEDS ORDERED: INSULIN REG, HUMAN 100 UNIT/ML 3 ML VIAL (PYX) SUBCUT ONE (11:23)
== END 2018-05-24 13:33 | disposition home or self-care (01) ==
LOC: ER 07:20
DX: N39.0 Urinary tract infection, site not specified (principal); D50.9 Iron deficiency anemia, unspecified; R10.2 Pelvic and perineal pain; E10.9 Type 1 diabetes mellitus without complications; Z79.4 Long term (current) use of insulin; Z96.41 Presence of insulin pump (external) (internal)
CPT/HCPCS: 99284; 96361; 96374; 36415; 82962; 85025; 81025; 80053; 81001; J1885; J1815; J7030

== ENCOUNTER 2018-10-06 14:19 | Emergency (ER) | payer OTHER ==
[2018-10-06 14:27] VITALS: BP 123/75
[2018-10-06] MEDS ORDERED: IBUPROFEN 800 MG TABLET PO ONE (14:44)
[2018-10-06] MEDS ORDERED: CEPHALEXIN 500 MG CAPSULE PO ONE (14:44)
--- NOTE | 2018-10-06 14:46 | ER Document Report ---
HPI - HPI Patient complains to provider of: skin infection Time Seen by Provider: 10/06/18 14:34 Onset: Other - 3 days Onset/Duration: Worse Quality of pain: Achy Pain Level: 4 Associated Symptoms: denies: Chest pain, Fever Exacerbated by: Movement Relieved by: Denies Similar symptoms previously: No Recently seen / treated by doctor: No Notes: Patient states that she had been using an insulin pump to the left upper arm. Patient states area became tender and swollen. Patient states that she has since stopped using the pump but has noticed that the area of swelling has become red and more painful today. Patient denies any fever. Patient reports looking at the equipment and denies any concerns about retained foreign body in the wound. - ROS ROS below otherwise negative: Yes Systems Reviewed and Negative: Yes All other systems reviewed and negative - CONSTITUTIONAL Constitutional: DENIES: Fever, Chills - REPRODUCTIVE Reproductive: DENIES: : - MUSCULOSKELETAL Musculoskeletal: REPORTS: Extremity pain, Swelling - DERM Skin Color: Erythema Past Medical History - General Information source: Patient - Social History Smoking Status: Never Smoker Frequency of alcohol use: None Drug Abuse: None Occupation: school childcare attendant Family History: Reviewed & Not Pertinent Endocrine Medical History: Reports: Hx Diabetes Mellitus Type 1 Renal/ Medical History: Denies: Hx Peritoneal Dialysis Past Surgical History: Reports: Hx Section - x 3 - Immunizations Hx Diphtheria, Pertussis, Tetanus Vaccination: Yes Vertical Provider Document - CONSTITUTIONAL Agree With Documented VS: Yes Exam Limitations: No Limitations General Appearance: WD/WN, No Apparent Distress - INFECTION CONTROL TRAVEL OUTSIDE OF THE [place] IN LAST 30 DAYS: No - HEENT HEENT: Atraumatic, Normocephalic - NECK Neck: Normal Inspection - RESPIRATORY Respiratory: No Respiratory Distress - CARDIOVASCULAR Cardiovascular: Regular Rate Pulses: Normal: Radial - MUSCULOSKELETAL/EXTREMETIES Musculoskeletal/Extremeties: MAEW, FROM, Tender - Tenderness to the posterior aspect of the left humerus with tender indurated area with mild erythema. No fluctuance - NEURO Level of Consciousness: Awake, Alert, Appropriate Motor/Sensory: No Motor Deficit - DERM Integumentary: Warm, Dry. negative: Abscess Notes: Tender indurated erythematous lesion the posterior aspect of left upper arm. No concern for abscess at this time. Course - Re-evaluation Re-evalutation: 10/06/18 14:45 Patient with mild erythema and induration to the arm after use of insulin pump. Patient states she has checked the equipment has no concern for any possible foreign body to the arm. Will treat for cellulitis at this time with good return precautions discussed. - Vital Signs Vital signs: Temp Pulse Resp BP Pulse Ox 98.9 F 106 H 18 123/75 98 10/06/18 14:27 10/06/18 14:27 10/06/18 14:27 10/06/18 14:27 10/06/18 14:27 Discharge - Discharge Clinical Impression: Cellulitis Qualifiers: Site of cellulitis: extremity Site of cellulitis of extremity: upper extremity Laterality: left Qualified Code(s): L03.114 - Cellulitis of left upper limb Condition: Stable Disposition: HOME, SELF-CARE Instructions: Cellulitis ([facility]), Cephalexin ([facility]), Warm Packs ([facility]) Additional Instructions: Return immediately for any new or worsening symptoms Followup with your primary care provider, call tomorrow to make a followup appointment Prescriptions: Cephalexin Monohydrate [Keflex 500 mg Capsule] 500 mg PO Q6H 7 Days capsule Naproxen [Naprosyn 250 Nmg Tablet] 1 tab PO BID #14 tablet Referrals: [facility] [Provider Group] - Follow up as needed
== END 2018-10-06 14:56 | disposition home or self-care (01) ==
LOC: ER 14:19
DX: L03.114 Cellulitis of left upper limb (principal); E10.9 Type 1 diabetes mellitus without complications; Z79.4 Long term (current) use of insulin; Z96.41 Presence of insulin pump (external) (internal)
CPT/HCPCS: 99282

== ENCOUNTER 2019-03-12 23:16 | Emergency (ER) | payer OTHER ==
[2019-03-12 23:34] VITALS: BP 122/78
[2019-03-13] MEDS ORDERED: ONDANSETRON 4 MG TAB.RAPDIS PO ONE (00:04)
--- NOTE | 2019-03-13 00:06 | ER Document Report ---
ED Medical Screen (RME) - General Chief Complaint: Nausea/Vomiting/Diarrhea Stated Complaint: NAUSEA/VOMITING/DIARRHEA Time Seen by Provider: 03/13/19 00:03 Notes: 33-year-old female with history of type 1 diabetes presents with nausea/vomiting /diarrhea and generalized abdominal pain since Tuesday. Ab soft diffusely tender. I have greeted and performed a rapid initial assessment of this patient. A comprehensive ED assessment and evaluation of the patient, analysis of test results and completion of the medical decision making process with be conducted by additional ED providers. TRAVEL OUTSIDE OF THE [place] IN LAST 30 DAYS: No - Related Data Allergies/Adverse Reactions: No Known Allergies Allergy (Verified 10/06/18 14:25) Past Medical History - Social History Family history: Reviewed & Not Pertinent Endocrine Medical History: Reports: Hx Diabetes Mellitus Type 1 Renal/ Medical History: Denies: Hx Peritoneal Dialysis Past Surgical History: Reports: Hx Section - x 3 - Immunizations Hx Diphtheria, Pertussis, Tetanus Vaccination: Yes Physical Exam - Vital signs Vitals: Temp Pulse Resp BP Pulse Ox 98.5 F 103 H 20 122/78 100 03/12/19 23:33 03/12/19 23:33 03/12/19 23:33 03/12/19 23:33 03/12/19 23:33 Course - Vital Signs Vital signs: Temp Pulse Resp BP Pulse Ox 98.5 F 103 H 20 122/78 100 03/12/19 23:33 03/12/19 23:33 03/12/19 23:33 03/12/19 23:33 03/12/19 23:33
[2019-03-13 01:18] LABS: ABSOLUTE EOSINOPHILS # (AUTO) 0.1 10^3/uL (0.0-0.6); ABSOLUTE LYMPHOCYTES (AUTO) 1.6 10^3/uL (0.5-4.7); ABSOLUTE MONOCYTES (AUTO) 0.7 10^3/uL (0.1-1.4); ABSOLUTE NEUT (AUTO) 5.2 10^3/uL (1.7-8.2); BASOPHILS % (AUTO) 0.2 % (0-2); EOSINOPHILS % (AUTO) 1.2 % (0-6); HEMATOCRIT 28.7 % (36.0-47.0); HEMOGLOBIN 8.7 g/dL (12.0-15.5); LYMPHOCYTES % (AUTO) 21.2 % (13-45); MEAN CORPUSCULAR HEMOGLOBIN 19.5 pg (27.0-33.4); MEAN CORPUSCULAR HGB CONC 30.1 g/dL (32.0-36.0); MEAN CORPUSCULAR VOLUME 65 fl (80-97); MONOCYTES % (AUTO) 9.7 % (3-13); PLATELET COUNT 374 10^3/uL (150-450); RED BLOOD COUNT 4.43 10^6/uL (3.72-5.28); RED CELL DISTRIBUTION WIDTH 17.3 % (11.5-14.0); SEGMENTED NEUTROPHILS % (AUTO) 67.7 % (42-78); TOTAL CELLS COUNTED % (AUTO) 100 %; WHITE BLOOD COUNT 7.7 10^3/uL (4.0-10.5)
[2019-03-13 01:22] LABS: ALBUMIN 3.6 g/dL (3.5-5.0); ALKALINE PHOSPHATASE 72 U/L (38-126); ANION GAP 10 (5-19); ASPARTATE AMINO TRANSFERASE 16 U/L (14-36); BILIRUBIN,DIRECT 0.2 mg/dL (0.0-0.4); BILIRUBIN,TOTAL 0.2 mg/dL (0.2-1.3); BLOOD UREA NITROGEN 11 mg/dL (7-20); CALCIUM 8.9 mg/dL (8.4-10.2); CARBON DIOXIDE 30 mmol/L (22-30); CHLORIDE 97 mmol/L (98-107); GLUCOSE 322 mg/dL (75-110); POTASSIUM 3.6 mmol/L (3.6-5.0); TOTAL PROTEIN 7.3 g/dL (6.3-8.2)
[2019-03-13 01:45] LABS: ANISOCYTOSIS 1+; HYPOCHROMASIA 2+; OVALOCYTES SLIGHT; POIKILOCYTOSIS SLIGHT; POLYCHROMASIA SLIGHT; TOXIC GRANULATION SLIGHT
[2019-03-13 01:46] LABS: PLATELET COMMENT ADEQUATE
== END 2019-03-13 01:17 | disposition left against medical advice (07) ==
LOC: ER 23:16
DX: R11.2 Nausea with vomiting, unspecified (principal); R19.7 Diarrhea, unspecified; R10.84 Generalized abdominal pain; E10.9 Type 1 diabetes mellitus without complications
CPT/HCPCS: 36415; 82962; 83690; 84703; 85025; 80053; S0119; 99281

== ENCOUNTER 2019-10-29 16:37 | Emergency (ER) | payer OTHER ==
[2019-10-29] MEDS ORDERED: ACETAMINOPHEN 325 MG TABLET PO ONE (17:31)
--- NOTE | 2019-10-29 18:06 | RADIOLOGY REPORT (SQ) ---
EXAM DESCRIPTION: KNEE RIGHT 4 VIEWS IMAGES COMPLETED DATE/TIME: 10/29/2019 5:55 pm REASON FOR STUDY: injury COMPARISON: None. NUMBER OF VIEWS: Four views. TECHNIQUE: AP, lateral, and both oblique radiographic images acquired of the right knee. LIMITATIONS: None. FINDINGS: MINERALIZATION: Normal. BONES: No acute fracture or dislocation. No worrisome bone lesions. JOINT: No effusion. SOFT TISSUES: No soft tissue swelling. No radio-opaque foreign body. OTHER: No other significant finding. IMPRESSION: NEGATIVE STUDY OF THE RIGHT KNEE. NO RADIOGRAPHIC EVIDENCE OF ACUTE INJURY. TECHNICAL DOCUMENTATION: JOB ID: [id number] 2010 [employer]- All Rights Reserved Reading location - IP/workstation name: [email or web address]
--- NOTE | 2019-10-29 18:13 | ER Document Report ---
HPI - HPI Patient complains to provider of: right knee pain Time Seen by Provider: 10/29/19 17:26 Pain Level: 4 Context: 34-year-old female past medical history significant for diabetes presents emergency room complaining of right knee pain. Patient states she was running through the house 6 days ago when she tripped over her dog injuring her right knee. States she has some rug burn which she has been taking care of with antibiotic ointment and Band-Aids. States her tetanus is up-to-date. However is complaining of persistent right knee pain. Is worse with standing and walking better with rest. Has been taking ibuprofen without relief. No history of previous trauma or injury to her knee. She denies any chance of . Associated Symptoms: None Exacerbated by: Movement, Walking Relieved by: Remaining still Similar symptoms previously: No Recently seen / treated by doctor: No - ROS Systems Reviewed and Negative: Yes All other systems reviewed and negative - CONSTITUTIONAL Constitutional: DENIES: Fever, Chills - EENT EENT: DENIES: Sore Throat, Ear Pain, Eye problems - NEURO Neurology: DENIES: Headache, Weakness, Vision blurred, Dizzinesss / Vertigo - CARDIOVASCULAR Cardiovascular: DENIES: Chest pain - RESPIRATORY Respiratory: DENIES: Trouble Breathing, Coughing - GASTROINTESTINAL Gastrointestinal: DENIES: Abdominal Pain, Black / Bloody Stools - URINARY Urinary: DENIES: Dysuria, Urgency, Frequency - REPRODUCTIVE LMP: 1 week ago Reproductive: DENIES: : - MUSCULOSKELETAL Musculoskeletal: REPORTS: Extremity pain - right knee - DERM Skin Color: Normal Skin Problems: Abrasion Past Medical History - General Information source: Patient - Social History Smoking Status: Never Smoker Frequency of alcohol use: None Family History: Reviewed & Not Pertinent Patient has homicidal ideation: No Endocrine Medical History: Reports: Hx Diabetes Mellitus Type 1 Renal/ Medical History: Denies: Hx Peritoneal Dialysis Past Surgical History: Reports: Hx Section - x 3 - Immunizations Hx Diphtheria, Pertussis, Tetanus Vaccination: Yes Vertical Provider Document - CONSTITUTIONAL Agree With Documented VS: Yes Exam Limitations: No Limitations General Appearance: Mild Distress - INFECTION CONTROL TRAVEL OUTSIDE OF THE [place] IN LAST 30 DAYS: No - HEENT HEENT: Atraumatic, Normocephalic - NECK Neck: Normal Inspection, Supple, Thyroid Normal - RESPIRATORY Respiratory: Breath Sounds Normal, No Respiratory Distress, Chest Non-Tender - MUSCULOSKELETAL/EXTREMETIES Musculoskeletal/Extremeties: Tender - Tenderness on palpation to the patella. Painful range of motion with flexion, extension, negative anterior posterior drawer, negative Rin's, negative Bill's. Patient is ambulatory with a steady gait. No obvious deformity is noted., No Edema - NEURO Level of Consciousness: Awake, Alert, Appropriate Motor/Sensory: No Motor Deficit, No Sensory Deficit Notes: Patient is ambulatory with a steady gait. - DERM Integumentary: Warm, Dry Notes: Right knee with 3 small abrasions, erythematous but no active discharge or draining noted. They are tender to palpation. Course - Re-evaluation Re-evalutation: 10/29/19 18:11 Patient is resting comfortably with decreased pain. Reviewed negative x-ray results with patient. Counseled need to follow-up outpatient with an orthopedist for possible MRI. She was provided with on-call physician. She can continue with Tylenol and or Motrin as needed for pain. Patient was given strict return to the emergency room guidelines. Return for any new or worsening symptoms. All questions were answered. Patient verbalized understanding and agrees with plan of care. - Vital Signs Vital signs: Temp Pulse Resp BP Pulse Ox 98.7 F 108 H 18 132/81 H 99 10/29/19 16:42 10/29/19 16:42 10/29/19 16:42 10/29/19 16:42 10/29/19 16:42 - Diagnostic Test Radiology reviewed: Reports reviewed Discharge - Discharge Clinical Impression: Abrasion, right knee, initial encounter Contusion of right knee Qualifiers: Encounter type: initial encounter Qualified Code(s): S80.01XA - Contusion of right knee, initial encounter Condition: Stable Disposition: HOME, SELF-CARE Instructions: Contusion ([facility]), Abrasions ([facility]) Additional Instructions: Rest, ice, elevate your right knee. Tylenol and/or Motrin as needed for pain. Outpatient follow-up with orthopedics as discussed. Return to the emergency room for any new or worsening symptoms. Referrals: JUSTICE XIAO DO [ACTIVE STAFF] - Follow up as needed
[2019-10-29 18:30] VITALS: BP 114/73
== END 2019-10-29 18:31 | disposition home or self-care (01) ==
LOC: ER 16:37
DX: S80.211A Abrasion, right knee, initial encounter (principal); S80.01XA Contusion of right knee, initial encounter; W01.0XXA Fall on same level from slipping, tripping and stumbling without subsequent striking against object, initial encounter; Y92.009 Unspecified place in unspecified non-institutional (private) residence as the place of occurrence of the external cause; E10.9 Type 1 diabetes mellitus without complications
CPT/HCPCS: 99283